=== PATIENT | male | born 1975 | race Two or more races ===

== ENCOUNTER 2022-01-10 07:27 | Outpatient (REF) | payer BC, SELFPAY ==
[2022-01-10 11:28] LABS: MANUAL DIFF FLAG NO
[2022-01-10 11:30] LABS: Appearance Urine Clear; Color Urine Yellow; Glucose Urine UA Negative (Negative); Leukocyte Esterase Urine Negative (Negative); Nitrite Urine Negative (Negative); Urine Blood Negative (Negative); Urine Ketones Negative (Negative); Urine Protein Negative (Neg-Trace)
[2022-01-10 11:45] LABS: Basophils Absolute Auto 0.1 X10*3/uL (0.0-0.2); Basophils Percent Auto 1.1 % (0-2); Eosinophils Absolute Auto 0.3 X10*3/uL (0.0-0.4); Eosinophils Percent Auto 4.9 % (0-4); Hematocrit 41.6 % (42.0-52.0); Hemoglobin 13.7 g/dl (14.0-18.0); Imm Gran Abs Auto 0.01 X10*3/uL (0.00-0.03); Imm Gran Pct Auto 0.2 % (0.0-0.4); Lymphocytes Absolute Auto 1.6 X10*3/uL (1.2-4.9); Mean Corpuscular HGB Conc 32.9 g/dl (31.0-36.0); Mean Corpuscular Hemoglobin 30.1 pg (27.0-33.0); Mean Corpuscular Volume 91.4 fL (80.0-98.0); Monocytes Absolute Auto 0.8 X10*3/uL (0.1-1.2); Monocytes Percent Auto 15.2 % (2-11); Neutrophils Absolute Auto 2.6 x10*3/uL (2.0-8.3); Neutrophils Percent Auto 48.6 % (45-73); Platelet Count 251 X10*3/uL (160-400); Red Blood Count 4.55 X10*6/uL (4.60-5.80); Red Cell Distribution Width 13.2 % (11.0-16.0); White Blood Count 5.3 X10*3/uL (4.8-10.8)
[2022-01-10 12:25] LABS: Prostate Specific Antigen Scr 0.17 ng/mL (<0.05-4.0); TSH reflex Free T4 8.94 uIU/mL (0.32-4.0)
[2022-01-10 12:47] LABS: Alanine Aminotransferase 12 U/L (0-40); Albumin Level 4.4 g/dL (3.5-5.0); Alkaline Phosphatase 50 U/L (39-117); Anion Gap 15 (12-20); Aspartate Amino Transferase 13 U/L (5-37); Bilirubin Total 0.7 mg/dL (0.0-1.0); Blood Urea Nitrogen 12 mg/dL (9-16); Calcium 9.1 mg/dL (8.4-10.2); Carbon Dioxide 25 mmol/L (22-29); Chloride 104 mmol/L (96-108); Cholesterol 160 mg/dL; Estimated Glomerular Filt Rate > 60; Glucose Fasting 85 mg/dL (60-99); HDL Cholesterol 54 mg/dL; LDL Cholesterol Calculated 95 mg/dl; Potassium 4.5 mmol/L (3.3-5.1); Sodium 139 mmol/L (135-145); Total Protein 7.2 g/dL (6.5-8.0); Triglycerides 58 mg/dL
[2022-01-10 13:38] LABS: Vitamin D 25-OH Total 25.5 ng/mL (>30)
[2022-01-10 15:18] LABS: Free T4 (Free Thyroxine) 0.78 ng/dL (0.71-1.85)
== END 2022-01-10 07:28 | disposition home or self-care (01) ==
LOC: HO.HMGCLDS 07:27
PROVIDERS: PCP Nurse Practitioner Family; Visit Provider Nurse Practitioner Family
DX: Z00.00 Encounter for general adult medical examination without abnormal findings (principal); Z80.42 Family history of malignant neoplasm of prostate; Z12.5 Encounter for screening for malignant neoplasm of prostate
CPT/HCPCS: 36415; 80053; 80061; 81003; 82306; 84153; 84439; 84443; 85025

== ENCOUNTER 2022-01-14 08:35 | Outpatient (REF) | payer BC, SELFPAY ==
[2022-01-14 11:32] LABS: MANUAL DIFF FLAG NO
[2022-01-14 11:47] LABS: Basophils Percent Auto 0.8 % (0-2); Eosinophils Absolute Auto 0.2 X10*3/uL (0.0-0.4); Eosinophils Percent Auto 3.9 % (0-4); Hematocrit 39.6 % (42.0-52.0); Hemoglobin 13.1 g/dl (14.0-18.0); Imm Gran Abs Auto 0.04 X10*3/uL (0.00-0.03); Imm Gran Pct Auto 0.8 % (0.0-0.4); Immature Retic Fraction 9.5 % (2.3-13.4); Lymphocytes Absolute Auto 1.3 X10*3/uL (1.2-4.9); Lymphocytes Percent Auto 27.1 % (20-40); Mean Corpuscular HGB Conc 33.1 g/dl (31.0-36.0); Mean Corpuscular Hemoglobin 30.1 pg (27.0-33.0); Mean Platelet Volume 11.9 fL (9.4-12.4); Monocytes Absolute Auto 0.8 X10*3/uL (0.1-1.2); Monocytes Percent Auto 15.6 % (2-11); Neutrophils Absolute Auto 2.5 x10*3/uL (2.0-8.3); Neutrophils Percent Auto 51.8 % (45-73); Platelet Count 243 X10*3/uL (160-400); Red Blood Count 4.35 X10*6/uL (4.60-5.80); Red Cell Distribution Width 13.1 % (11.0-16.0); Retic HGB Equivalent 33.8 pg (30.0-35.0); Reticulocyte Percent 1.1 % (0.5-1.8); Reticulocytes Absolute 0.049 X10*6/uL (0.026-0.095); White Blood Count 4.9 X10*3/uL (4.8-10.8)
[2022-01-14 11:55] LABS: Iron 77 mcg/dL (45-160); Percent Iron Saturation 25 % (15-50); Total Iron Binding Capacity 306 mcg/dL (228-428); Unsaturated Iron Binding 229 ug/dL
[2022-01-14 12:18] LABS: Ferritin 47 ng/mL (20-250); TSH reflex Free T4 6.63 uIU/mL (0.32-4.0)
[2022-01-14 12:29] LABS: Folate 9.7 ng/mL (> or = 4.0); Vitamin B12 283 pg/mL (200-900)
[2022-01-14 13:18] LABS: Free T4 (Free Thyroxine) 0.82 ng/dL (0.71-1.85)
[2022-01-15 09:37] LABS: Thyroid Peroxidase Antibodies 4 IU/mL (<9)
== END 2022-01-14 08:36 | disposition home or self-care (01) ==
LOC: HO.HMGCLDS 08:35
PROVIDERS: PCP Nurse Practitioner Family; Visit Provider Nurse Practitioner Family
DX: R79.89 Other specified abnormal findings of blood chemistry (principal); D64.9 Anemia, unspecified
CPT/HCPCS: 36415; 82607; 82728; 82746; 83540; 84439; 84443; 85025; 85045; 86376

== ENCOUNTER 2022-01-16 11:59 | Outpatient (REF) | payer BC, SELFPAY ==
[2022-01-16 16:46] LABS: FIT Int Ctl YES; FIT1 NEGATIVE (NEGATIVE); FIT2 NEGATIVE (NEGATIVE)
== END 2022-01-16 12:00 | disposition home or self-care (01) ==
LOC: HO.HMGCLDS 11:59
PROVIDERS: PCP Nurse Practitioner Family; Visit Provider Nurse Practitioner Family
DX: D64.9 Anemia, unspecified (principal); R79.89 Other specified abnormal findings of blood chemistry
CPT/HCPCS: 82274

== ENCOUNTER 2022-02-25 10:06 | Outpatient (REF) | payer BC, SELFPAY ==
--- NOTE | ~2022-02-25 | US_ITS ---
EXAMINATION: US THYROID CLINICAL INFORMATION: Other specified abnormal findings of blood chemistry. COMPARISON: None TECHNIQUE: Linear transducer blanton-scale and color Doppler examination with attention to the region of the thyroid. FINDINGS: SIZE: Measurements of the thyroid lobes and nodules are given in sagittal, anteroposterior and transverse dimensions respectively. Right Thyroid Lobe: 5.3 x 2.0 x 1.3 cm, volume 7.5 mL. Parenchyma: The gland echotexture is heterogeneous. Thyroid vascularity is increased. Left Thyroid Lobe: 4.6 x 1.7 x 1.4 cm, volume 5.9 mL. Parenchyma: The gland echotexture is heterogeneous. Thyroid vascularity is increased. Isthmus: 0.5 cm in maximum AP dimension. Estimated total number of nodules greater than or equal to 1 cm: 0. Equipment Engineering Technician nodules are described as follows: 1. Location: Right lower pole. Size: 0.4 x 0.3 x 0.3 cm, volume 0.02 mL. Nodule characteristics: Composition: Spongiform (0). ACR TI-RADS total points: 0 ACR TI-RADS category: 1 NODES: No lymphadenopathy is seen in the tissue surrounding the thyroid gland. US/US thyroid IMPRESSION: Bilateral heterogeneous and slightly hypervascular thyroid gland. Solitary nonsuspicious nodule lower pole right lobe. ACR TI-RADS RECOMMENDATION REFERENCE: Ultrasound-guided fine-needle aspiration, followup ultrasound, no further follow up. * TR1 (0 point) and TR 2 (2 points): No FNA or follow up. * TR3 (3 points): FNA if more than or equal to 2.5 cm in maximum dimension, followup ultrasound in 1, 3 and 5 years if 1.5 to 2.4 cm in maximum dimension. * TR4 (4-6 points): FNA if more than or equal to 1.5 cm in maximum dimension, followup ultrasound in 1, 2, 3 and 5 years if 1 to 1.4 cm in maximum dimension. * TR5 (more than or equal to 7 points): FNA if more than or equal to 1 cm in maximum dimension, followup ultrasound every year for 5 years if 0.5 to 0.9 cm in maximum dimension. * TR3, TR4 or TR5 nodules that are below the size threshold for followup receive no follow up.
== END 2022-02-25 10:07 | disposition home or self-care (01) ==
LOC: HO.HMGCX 10:06
PROVIDERS: PCP Nurse Practitioner Family; Visit Provider Nurse Practitioner Family
DX: R79.89 Other specified abnormal findings of blood chemistry (principal)
CPT/HCPCS: 76536

== ENCOUNTER → 2022-03-21 14:28 | Outpatient (BNVA) | payer BC, SELFPAY | PROVIDERS: PCP Nurse Practitioner Family; Visit Provider Internal Medicine | DX: Z13.89 Encounter for screening for other disorder (principal) ==

== ENCOUNTER → 2022-04-04 08:15 | Outpatient (BNVA) | payer BC, SELFPAY | PROVIDERS: PCP Nurse Practitioner Family; Visit Provider Internal Medicine Endocrinology, Diabetes & Metabolism | DX: R79.89 Other specified abnormal findings of blood chemistry (principal) ==

== ENCOUNTER 2022-05-29 07:24 | Day surgery (SDC) | payer BC, SELFPAY ==
--- NOTE | 2022-05-28 10:33 | P.CONAN_ITS ---
Documented by User: Nanci Jaime NP 05/28/22 10:34 HPI - Anesthesia Eval Consult details Narrative: 46yo M for Upper Endoscopy and Colonoscopy PMFSH Active Problems Active Problems: All Active Problems (Updated 05/23/22 @ 14:46 by Madison Smith RN) Physical exam (Acute) Screening for colon cancer (Acute) Family hx of prostate cancer (Acute) Elevated TSH (Acute) Anemia (Acute) Thyroid disorder (Acute) Past Medical History Medical History (Updated 05/23/22 @ 14:46 by Madison Smith RN) Anemia Family History Family History Maternal Aunt Cancer Sister Breast cancer Surgical History Surgical History No pertinent past surgical history Social History Social History (Updated 04/04/22 @ 08:24 by BERNIE Lara) Household Members: Significant Other Housing: House Alcohol intake: current Alcohol intake frequency: holidays/special occasions only Patient Tobacco Use Status: Never used Tobacco e-Cigarette/Vaping Use: Never Used Second Hand Smoke Exposure: No Use of substances other than those prescribed or required for medical reasons: No Are you DNR?: No Advance Directives: No Advance Directives Information Provided: Yes service: No Current occupational status: employed Current occupation: [employer] Current occupational exposures/hazards: No Cognitive needs: No Hearing needs: No Vision needs: No Meds Allergies Allergy/AdvReac Type Severity Reaction Status Date / Time No Known Allergies Allergy Verified 05/23/22 14:46 Exam Exam Date and Time: May 28, 2022 1033 Pertinent Lab Results Pertinent Lab Results: Laboratory Tests 01/10/22 01/14/22 07:36 08:45 WBC 4.9 Hgb 13.1 L Hct 39.6 L Plt Count 243 Sodium 139 Potassium 4.5 Chloride 104 Carbon Dioxide 25 BUN 12 Creatinine 0.89 Assessment and Plan Assessment Anesthesia Assessment: Chart Reviewed Documented by User: Angelique Mahajan MD 05/29/22 08:00 [facility] Past Medical History Medical History (Updated 05/23/22 @ 14:46 by Madison Smith RN) Anemia Family History Family History Maternal Aunt Cancer Sister Breast cancer Family history of problems with anesthesia: No Surgical History Surgical History No pertinent past surgical history History of Problems with Anesthesia: No Social History Social History (Updated 04/04/22 @ 08:24 by BERNIE Lara) Household Members: Significant Other Housing: House Alcohol intake: current Alcohol intake frequency: holidays/special occasions only Patient Tobacco Use Status: Never used Tobacco e-Cigarette/Vaping Use: Never Used Second Hand Smoke Exposure: No Use of substances other than those prescribed or required for medical reasons: No Are you DNR?: No Advance Directives: No Advance Directives Information Provided: Yes service: No Current occupational status: employed Current occupation: [employer] Current occupational exposures/hazards: No Cognitive needs: No Hearing needs: No Vision needs: No Meds Allergies Allergy/AdvReac Type Severity Reaction Status Date / Time No Known Allergies Allergy Verified 05/23/22 14:46 Exam Airway Mallampati Class: II TM Dist: >3cm Neck ROM: Full Loose/Missing/Broken Teeth: No Heart: rr Lungs: cta Assessment and Plan Assessment Anesthesia Assessment: Anesthesia Plan Discussed Final Anesthetic Review Family History of Problems with Anesthesia: No History of Problems with Anesthesia: No NPO: Yes ASA Class: I Final Preanesthetic Review: No Changes in Pt Med Stat, Meds/Allgs Chart Reviewed, Consent Obtained/Reviewed and Anes Risks/Benef Reviewed Patient Risk: Low Procedure Risk: Low Assessment/Block/Sedation in SS: Assess/Block/Sedation-SS Anesthetic Plan Anesthetic Plan: MAC: Disposition: Standard PACU
[2022-05-29 07:46] VITALS: BP 99/73; PULSE 67; RESP 18; TEMP 36.1; O2SAT 100; BMI 24.2
--- NOTE | 2022-05-29 08:05 | MHC.SHP ---
Pre-Procedural Eval Section A Date of Service: 05/29/22 Section B Chief Complaint: anemia, Relevant Social History: None Present Medications: see Short Stay Collaborative assessment History of Previous Operations: No relevant previous surgery Allergies: Allergies Allergy/AdvReac Type Severity Reaction Status Date / Time No Known Allergies Allergy Verified 05/23/22 14:46 Review of Systems Review of Systems Comment: 10 point ROS negative Exam Exam Comment: Gen appear: No acute distress HEENT: no icterus Chest: No overt resp distress Abd: soft, nontender, nondistended Psych: Stable affect, answering questions appropriately Neuro: A/Ox3 noted to move all extremities spontaneously Ext: no peripheral edema Plan Diagnosis/Plan: Unchanged I have reviewed the history and physical and performed a pertinent physical examination on my patient. No changes have occurred unless specified. Time Spent With Patient Time: Total time managing care of this patient today ____ minutes.
[2022-05-29] MEDS: Lactated Ringers 1,000 ML 100 ML IVCONT (08:06)
--- NOTE | 2022-05-29 08:26 | P.OP_ITS ---
Operative Note Operative Note Date of Service: 05/29/22 Narrative: Procedure:?Esophagogastroduodenoscopy and Colonoscopy Indication:?Anemia Endoscopist:?Maggie Henderson MD Anesthesia Provider:?Dr Angelique Mahajan Anesthesia type:?MAC Instrument:?Olympus GIF-H190, PCF-H190L EGD Procedure:?? The procedure, indications, preparation and potential complications were reviewed with the patient, who indicated understanding and gave written informed consent to proceed. A physical exam was performed. A bite block was placed. The endoscope which was then introduced through the mouth, and advanced to the second part of the duodenum. The mucosa was carefully examined on slow withdrawal of the endoscope. The patient tolerated the procedure well. There were no immediate complications.? ? EGD Findings:? * Esophagus: The Z line was at 42 cm. A focal patch of heterotopic gastric mucosa was noted at the level of cricopharyngeus. Remaining esophageal mucosa was normal. * Stomach:?Normal mucosa was noted in the stomach. Retroflexion in the fundus confirmed the size and morphology of the hiatal hernia with Hill Class II. Random cold forceps biopsies were taken to rule out H pylori. * Duodenum:? Normal mucosa to the extent seen.?Cold forceps biopsies were taken from the duodenal bulb and 2nd portion of the duodenum to rule out celiac sprue. Colonoscopy Procedure:? The patient was then turned for the colonoscopy. A digital rectal exam was performed which was normal.? A distal attachment cap was affixed to the tip of the scope and the colonoscope was then inserted through the anus and advanced through the colon to the cecum at 85 cm and terminal ileum. The appendiceal orifice and ileocecal valve was identified.? Mucosa was carefully examined under high definition white light as the instrument was slowly withdrawn in a retrograde panoramic fashion.? Ascending colon was intubated twice.? Retroflexion was performed in rectum. The procedure was not difficult. There were no immediate obvious complications. The quality of the prep was BBPS: 3+2+3 = adequate Withdrawal time 6 minutes. Limitations: No limitations Colonoscopy Findings: Mucosa: Normal mucosa in colon and terminal ileum. Protruding lesions: * Medium internal hemorrhoids with stigmata of recent bleeding. Impression:? * Inlet patch * Hiatal hernia * Normal stomach (biopsy) * Normal duodenum (biopsy) * Normal colon and terminal ileum mucosa * Internal hemorrhoids Recommendations: * Await path results.? * Repeat colonoscopy for asymptomatic colon cancer screening in 10 years Findings were reviewed with the patient and relevant handouts were provided.
[2022-05-29 08:51] VITALS: BP 91/63; PULSE 63; RESP 17; TEMP 36.6; O2SAT 100
[2022-05-29 09:06] VITALS: BP 98/67; PULSE 60; RESP 16; O2SAT 97
[2022-05-29 09:12] VITALS: BP 102/75; PULSE 61; RESP 16; TEMP 36.2; O2SAT 97
--- NOTE | 2022-05-29 09:20 | P.CDIC_ITS ---
CDI Concurrent Query Provider Response: Anemia
--- NOTE | 2022-05-29 09:20 | MHC.CDI.CONC ---
CDI Concurrent Query Provider Response: Anemia
== END 2022-05-29 10:32 | disposition home or self-care (01) ==
PROVIDERS: PCP Nurse Practitioner Family; Visit Provider Internal Medicine
PROC: (CPT 43239; principal; 2022-05-29 08:20)
DX: D64.9 Anemia, unspecified (principal); K64.8 Other hemorrhoids; K29.50 Unspecified chronic gastritis without bleeding; B96.81 Helicobacter pylori [H. pylori] as the cause of diseases classified elsewhere; K44.9 Diaphragmatic hernia without obstruction or gangrene; Q39.8 Other congenital malformations of esophagus; E07.9 Disorder of thyroid, unspecified; R94.6 Abnormal results of thyroid function studies
CPT/HCPCS: 43239; 88305; 88342

== ENCOUNTER → 2022-06-04 15:17 | Outpatient (BNVA) | payer BC, SELFPAY | PROVIDERS: PCP Nurse Practitioner Family; Visit Provider Internal Medicine | DX: Z13.89 Encounter for screening for other disorder (principal) ==

== ENCOUNTER 2024-05-18 10:14 | Outpatient (AMB) | payer BC, SELFPAY ==
[2024-05-18 10:30] VITALS: BP 102/70; PULSE 55; TEMP 36.4; O2SAT 98; BMI 23.7
--- NOTE | 2024-05-18 10:30 | MHC.PC.OV ---
Vital Signs 05/18/24 10:30 Height 5 ft 6 in Weight 147 lb BMI 23.7 BP 102/70 Blood Pressure Location Lt brachial Position Sitting Pulse 55 Pulse Source Pulse Oximeter Temp 97.6 F Temp Source Oral Pulse Oximetry (%) 98 Intake Visit Reasons: ANNUAL Intake Note: pt is here for annual exam Aircraft Stress Analyst Required: No Accompanied by: Self / Same As Patient Allergies No Known Allergies Allergy (Verified 05/18/24 11:17) Medication List - Last Reconciled 05/18/24 by SULY Kathleen No Known Home Meds Tobacco use date assessed: 05/18/24 Dental Screening Dental Screen Date: 05/18/24 Did you have a dental visit in the last 12 months?: Yes Did you have a dental problem in the last 6 months where you did not have access to dental care?: No Was dental information given to patient?: Patient has dentist HPI ANNUAL HPI Details History of Present Illness The patient is a 48-year-old male presenting for a physical examination. He reports no fever, chills, or gastrointestinal symptoms such as blood in the stool, constipation, or diarrhea. He confirms the absence of abdominal or urinary complaints. Additionally, he denies having psychological symptoms such as anxiety, depression, suicidal ideation, or homicidal ideation. His colon cancer screening is current. Health Maintenance - Colon cancer screening is up-to-date. - Encouraged the patient to have fasting laboratory tests conducted in the near future. Social History Review of Systems - Constitutional: Denies fever, chills. - Gastrointestinal: Denies blood in the stool, constipation, diarrhea, and abdominal pain. - Genitourinary: Denies urinary issues. - Psychiatric: Denies anxiety, depression, suicidal ideation, and homicidal ideation. Physical Exam General: Cooperative, healthy appearing, comfortable, no acute distress and well developed Orientation: Patient oriented x3 Limitations: No limitations Head: Normal to inspection Ears: Hearing grossly normal bilaterally Nose: Normal external nose present Face and sinus: Normal facial exam Eyes: Appearance normal, both eyes and all related structures Neck: Normal visual inspection and Yes full ROM Respiratory: Normal respiratory effort and able to speak in complete sentences. Clear to auscultation bilaterally Cardiovascular: Regular rate and rhythm. Normal S1 and S2 GI: Normal to inspection. Soft to palpation and nontender : no testicular lesions, signs of hernias Skin: No rashes or lesions noted Neuro: Patient oriented x3 Extremities: Normal to inspection Results Plan The focus of today's visit was on health maintenance. I confirmed that the patient?s colon cancer screening is up-to-date and encouraged him to undergo fasting laboratory tests in the near future. No new medical or psychological issues were identified that required further action at this time. Discussion Notes I discussed with the patient the importance of regular health maintenance activities, confirming that his colon cancer screening is current. Recommendations were made for him to pursue fasting laboratory tests soon, reinforcing the importance of monitoring his general health status. The discussion emphasized the absence of current complaints and the significance of staying on top of preventive healthcare measures. Patient Instructions - Continue with regular health maintenance activities. - Schedule fasting laboratory tests in the near future. - Maintain awareness of any changes in health status and report any new symptoms if they arise. [facility] Medical History Anemia Surgical History History of esophagogastroduodenoscopy (EGD) Hx of colonoscopy No pertinent past surgical history Family History Maternal Aunt Cancer Sister Breast cancer Social History Household Members: Significant Other Housing: House Alcohol intake: current Alcohol intake frequency: holidays/special occasions only Patient Tobacco Use Status: Never used Tobacco e-Cigarette/Vaping Use: Never Used Second Hand Smoke Exposure: No service: No Current occupational status: employed Current occupation: [employer] Current occupational exposures/hazards: No Cognitive needs: No Hearing needs: No Vision needs: No Questionnaire PHQ-9 Over the last 2 weeks, how often have you been bothered by any of the following problems? 1. Little interest or pleasure in doing things: not at all 2. Feeling down, depressed, or hopeless: not at all 3. Trouble falling or staying asleep, or sleeping too much: not at all 4. Feeling tired or having little energy: not at all 5. Poor appetite or overeating: not at all 6. Feeling bad about yourself - or that you are a failure or have let yourself or your family down: not at all 7. Trouble concentrating on things, such as reading the newspaper or watching television: not at all 8. Moving or speaking so slowly that other people could have noticed. Or the opposite - being so fidgety or restless that you have been moving around a lot more than usual: not at all 9. Thoughts that you would be better off or of hurting yourself in some way: not at all Total score: 0 Depression Screening Interpretation: Negative Depression Screening Done: Yes 46088 - PHQ-9 Billing: Yes Source: Developed by Drs. Jacob Lemus, Kiley Howard, Zhou Olmos and colleagues, with an educational toan from [employer]. Thrive Questionnaire Date Thrive assessed: 05/18/24 I am a: Patient What is your living situation today?: I have a steady place to live Within the past 12 months, did the food you bought not last and you didn't have the money to get more?: I choose not to answer this question Within the past 12 months, did you worry whether your food would run out before you got money to buy more?: I choose not to answer this question Do you have trouble paying for medicines?: I choose not to answer this question Do you have trouble getting transportation to medical appointments?: No Do you have trouble paying your heating and electricity bill?: No Do you have trouble taking care of your child, family member or friend?: I choose not to answer this question Do you have trouble with day-to-day activities such as bathing, preparing meals, shopping, managing finances, etc.?: No Are you currently unemployed and looking for a job?: No Are you interested in more education?: No Please select the resources that you would like help with: None Currently or been in a relationship where the following occur: No concerns reported THRIVE Score: 0 AUDIT C Alcohol Use Questionnaire (AUDIT-C) 1. How often do you have a drink containing alcohol?: Monthly or less 2. How many drinks containing alcohol do you have on a typical day when you are drinking?: 1 or 2 3. How often do you have six or more drinks on one occasion?: Never Total Score: 1 Score Reviewed/Action Taken: Yes TIGIST-7 AMB Questionnaire TIGIST-7 Date TIGIST - 7 assessed: 05/18/24 Feeling nervous, anxious, or on edge: 1 = Several days Not being able to stop or control worryin = Not at all Worrying too much about different things: 1 = Several days Trouble relaxin = Not at all Being so restless that it is hard to sit still: 0 = Not at all Becoming easily annoyed or irritable: 1 = Several days Feeling afraid as if something awful might happen: 0 = Not at all Total TIGIST-7 score (0-4 normal; 5-9 mild; 10-14 moderate; 15-21 severe): 3 Source: Developed by Drs. Jacob Lemus, Kiley Howard, Zhou Olmos and colleagues, with an educational toan from [employer]. TIGIST-7 Assessment Billing TIGIST-7 Assessment Tool: TIGIST-7 Assessment 83906 Physical exam (Primary Care) Vital Signs: Last Vital Signs Temp 97.6 F 05/18/24 10:30 Pulse 55 05/18/24 10:30 BP 102/70 05/18/24 10:30 Pulse Ox 98 05/18/24 10:30 BMI result Body Mass Index 23.7 Tobacco/Smoking Status: Tobacco use Status Tobacco use date assessed 05/18/24 05/18/24 10:32 Patient Tobacco Use Status Never used Tobacco 05/18/24 10:32 e-Cigarette/Vaping Use Never Used 05/18/24 10:32 PHQ-9: PHQ-9 Score PHQ-9: Total score 0 05/18/24 11:07 Depression Screening Interpretation: Negative Thrive Assessment: Date of Thrive Assessment Date Thrive assessed 05/18/24 05/18/24 10:32 Currently or been in a relationship where the following occur: No concerns reported Coding Level of Care Code Est Pt Prev Care 40-64y(03628) Diagnoses Physical exam Z00.00 Family hx of prostate cancer Z80.42 Additional Codes TIGIST-7 Assessment Billing - TIGIST-7 Assessment Tool: TIGIST-7 Assessment 58401 ([id number]) PHQ-9 - 67496 - PHQ-9 Billing: Yes ([id number]) Assessment & Plan Assessment & Plan (1) Physical exam: Code(s): Z00.00 - Encounter for general adult medical examination without abnormal findings Category: Medical (2) Family hx of prostate cancer: Code(s): Z80.42 - Family history of malignant neoplasm of prostate Category: Medical Plan . Orders: Orders Complete Blood Count Auto Diff Today Z00.00 - Encounter for general adult medical examination without abnormal findings Comprehensive [place]. Panel Fast Today Z00.00 - Encounter for general adult medical examination without abnormal findings TSH reflex Free T4 Today Z00.00 - Encounter for general adult medical examination without abnormal findings Prostate Specific Antigen Scr Today Z80.42 - Family history of malignant neoplasm of prostate UA CC w/rflx Micro + Cult Today Z00.00 - Encounter for general adult medical examination without abnormal findings Lipid Panel Today Z00.00 - Encounter for general adult medical examination without abnormal findings
== END 2024-05-18 11:32 | disposition home or self-care (01) ==
LOC: HO.HMCC 10:15
PROVIDERS: PCP Nurse Practitioner Family; Visit Provider Nurse Practitioner Family
DX: Z00.00 Encounter for general adult medical examination without abnormal findings (principal); Z80.42 Family history of malignant neoplasm of prostate

== ENCOUNTER → 2024-05-18 10:14 | Outpatient (BNVA) | payer BC, SELFPAY | PROVIDERS: PCP Nurse Practitioner Family; Visit Provider Nurse Practitioner Family | DX: Z00.00 Encounter for general adult medical examination without abnormal findings (principal); Z80.42 Family history of malignant neoplasm of prostate | CPT/HCPCS: 96127 ==

== ENCOUNTER 2024-07-27 06:13 | Outpatient (REF) | payer BC, SELFPAY ==
[2024-07-27 10:18] LABS: MANUAL DIFF FLAG NO
[2024-07-27 10:23] LABS: Appearance Urine Clear; Color Urine Yellow; Glucose Urine UA Negative (Negative); Leukocyte Esterase Urine Negative (Negative); Nitrite Urine Negative (Negative); PH 5.5 (5.0-9.0); Specific Gravity - Urine 1.025 (1.005-1.025); Urine Blood Negative (Negative); Urine Ketones Trace mg/dL (Negative); Urine Protein Negative (Neg-Trace)
[2024-07-27 10:26] LABS: Basophils Absolute Auto 0.1 X10*3/uL (0.0-0.2); Basophils Percent Auto 1.1 % (0-2); Eosinophils Absolute Auto 0.3 X10*3/uL (0.0-0.4); Eosinophils Percent Auto 5.9 % (0-4); Hemoglobin 12.4 g/dl (14.0-18.0); Imm Gran Abs Auto 0.01 X10*3/uL (0.00-0.03); Imm Gran Pct Auto 0.2 % (0.0-0.4); Lymphocytes Absolute Auto 1.9 X10*3/uL (1.2-4.9); Lymphocytes Percent Auto 34.2 % (20-40); Mean Corpuscular HGB Conc 32.6 g/dl (31.0-36.0); Mean Corpuscular Hemoglobin 29.2 pg (27.0-33.0); Mean Corpuscular Volume 89.4 fL (80.0-98.0); Mean Platelet Volume 11.6 fL (9.4-12.4); Monocytes Absolute Auto 0.8 X10*3/uL (0.1-1.2); Monocytes Percent Auto 14.2 % (2-11); Neutrophils Absolute Auto 2.4 x10*3/uL (2.0-8.3); Neutrophils Percent Auto 44.4 % (45-73); Platelet Count 243 X10*3/uL (160-400); Red Blood Count 4.25 X10*6/uL (4.60-5.80); Red Cell Distribution Width 13.2 % (11.0-16.0); White Blood Count 5.4 X10*3/uL (4.8-10.8)
[2024-07-27 10:56] LABS: Prostate Specific Antigen Scr 0.15 ng/mL (<0.05-4.0)
[2024-07-27 11:03] LABS: Alanine Aminotransferase 24 U/L (0-40); Albumin Level 4.4 g/dL (3.5-5.0); Alkaline Phosphatase 53 U/L (39-117); Anion Gap 8 (12-20); Aspartate Amino Transferase 23 U/L (5-37); Bilirubin Total 0.5 mg/dL (0.0-1.0); Blood Urea Nitrogen 17 mg/dL (9-16); Carbon Dioxide 27 mmol/L (22-29); Chloride 107 mmol/L (96-108); Cholesterol 150 mg/dL (<200); Estimated Glomerular Filt Rate > 60; Glucose Fasting 91 mg/dL (60-99); HDL Cholesterol 54 mg/dL (>40); LDL Cholesterol Calculated 84 mg/dL (<100); Potassium 4.1 mmol/L (3.3-5.1); Sodium 138 mmol/L (135-145); Triglycerides 62 mg/dL (<150)
[2024-07-27 11:06] LABS: TSH reflex Free T4 9.29 uIU/mL (0.32-4.0)
[2024-07-27 11:39] LABS: Free T4 (Free Thyroxine) 0.73 ng/dL (0.71-1.85)
== END 2024-07-27 06:14 | disposition home or self-care (01) ==
LOC: HO.HMGCLDS 06:13
PROVIDERS: PCP Nurse Practitioner Family; Visit Provider Nurse Practitioner Family
DX: Z00.00 Encounter for general adult medical examination without abnormal findings (principal); Z80.42 Family history of malignant neoplasm of prostate; Z12.5 Encounter for screening for malignant neoplasm of prostate; Z13.6 Encounter for screening for cardiovascular disorders
CPT/HCPCS: 36415; 80053; 80061; 81003; 84153; 84439; 84443; 85025